=== PATIENT | male | born 1975 | race Caucasian/White ===

== ENCOUNTER → 2016-11-23 | Outpatient (CLI) | payer OTHER ==
--- NOTE | 2016-11-29 00:55 | ECWPNPC ---
PATIENT NAME: KARLA MAGDALENO : 1975 GENDER: MALE VISIT DATE: 11/23/2016 DISCHARGE DATE: 11/23/16 1512 VISIT LOCKED DATE TIME: PHYSICIAN: EDU ROBERTS RESOURCE: EDU ROBERTS REASON FOR APPOINTMENT 1. BILATERAL HEELS HISTORY OF PRESENT ILLNESS FALL RISK SCREENING: SCREENING :NO FALLS IN THE PAST YEAR PAIN SCREENING: PATIENT HAS A COMPLAINT OF ACUTE OR CHRONIC PAIN :YES TODAY'S VISIT: NOTES: REFERRED BY DR Klarissa LAU AND DR SURESH FOR BILATERAL ANKLE PAIN. ONSET 3 YEARS AGO. STATES HE HAD TO JUMP 22 FEET DOWN LADDER LANDING ON FEET AND HEELS. AT THE SCENE , HE WAS UNABLE STAND- HE IMMEDIATELY SAT, ELEVATED FEET, TOOK SHOES OFF AND BOTH FEET AND ANKLES SWELLED SEVERELY AND IMMEDIATELY.WAS SEEN IN [facility] ER AND WAS REFERRED TO [facility]. NO SURGERICAL INTERVENTION WAS DONE TO THE FEET OR ANKLES. - WAS REFERRED TO [facility] BUT THEY DECLINED TO SEE. HAS FALLEN SINCE THE ORIGINAL INJURY AND HAS REBROKEN THE RIGHT HEEL AGAIN X 2. LAST EVENT WAS 2015. HAD COMPLETED PT. REPORTS RIGHT FOOT IS WEAK AND HAS THE MOST PAIN. . WAITING ON ORTHOTICS FOR BOTH FEET. WALKING WITH CANE AT PRESENT. STATES WALKED FROM HIS HOME ON [address] TO THE CLINIC TODAY AND PAIN IS SEVERE DUE TO THIS. IS TRYING TO TAKE CARE OF HOME AND FAMILY. REPORTS HE HAS HAD PRIOR BACK AND NECK PAIN ISSUES - HAD ONE DAY RELIEF AFTER NECK INJECTION COMPLETED BY DR MAHMOOD AT [facility]. HAD PRIOR CERVICAL FX 2013 AFTER A 15 FOOT FALL. RATES PAIN TODAY 9/10. STATES PAIN IS CONSTANT WITH INTERMITTANT SHARP SHOOTING PAIN. WORST PAIN IS RIGHT HEEL AND FOOT. IS CURRENTLY BEING PRESCRIBES PERCOCET 5/325 MAX 3 TABS PER DAY BY ORTHOPEDICS AND THEY HAVE REFERED HIM TO US FOR CONTINUED MEDICATIONS. . CURRENT MEDICATIONS TAKING PERCOCET 5-325 MG TABLET 1 TABLET NEEDED ORALLY THREE TIMES DAILY NEEDED TAKING SPACER/AERO-HOLD CHAMBER BAGS - MISCELLANEOUS DIRECTED TAKING ANORO ELLIPTA UMECLIDINIUM 62.5 MCG AND VILANTEROL 25 MCG INHALATION POWDER 1 INHALATION ORAL ONCE DAILY TAKING VENTOLIN HFA 108 (90 BASE) MCG/ACT AEROSOL SOLUTION 2 PUFFS NEEDED INHALATION EVERY 4 HRS TAKING CLOTRIMAZOLE ANTI-FUNGAL 1 % CREAM 1 APPLICATION TO AFFECTED AREA EXTERNALLY TWICE A DAY TO SHOULDERS TAKING KETOCONAZOLE 2 % SHAMPOO DIRECTED EXTERNALLY DAILY NOT-TAKING GABAPENTIN 100 MG CAPSULE 1 TABLET ORALLY THREE TIMES A DAY NOT-TAKING BUSPAR 15 MG TABLET 1 TABLET ORALLY THREE A DAY MEDICATION LIST REVIEWED AND RECONCILED WITH THE PATIENT PAST MEDICAL HISTORY CHRONIC PAIN SHAVONNE FEET S/P SHAVONNE FX ANXIETY AND DEPRESSION ALLERGIES N.K.D.A. SURGICAL HISTORY DENIES PAST SURGICAL HISTORY FAMILY HISTORY FATHER: , DIAGNOSED WITH CANCER MOTHER: , DIAGNOSED WITH PSYCHIATRIC CONDITIONS 3DAUGHTER(S) - HEALTHY. SOCIAL HISTORY GENERAL: TOBACCO USE ARE YOU A:CURRENT SMOKER HOW MANY CIGARETTES A DAY DO YOU SMOKE?11-20 HOW SOON AFTER YOU WAKE UP DO YOU SMOKE YOUR FIRST CIGARETTE?6-30 MIN HOW OFTEN DO YOU SMOKE CIGARETTES?EVERY DAY PATIENT COUNSELED ON THE DANGERS OF TOBACCO USE AND URGED TO QUIT:11/23/2016 ARE YOU INTERESTED IN QUITTING?NOT READY TO QUIT COUNSELED THE PATIENT ON SMOKING EFFECTS, EDUCATION [id number]/30/2017 ALCOHOL SCREENING POINTS6 INTERPRETATIONPOSITIVE RECREATIONAL DRUG USE DRUG USE?YES HOW OFTEN AND HOW MUCH? MARIJUANA ONCE A MONTH CAFFEINE CAFFEINE USE?YES 3 CUPS OF COFFEE OCCUPATION: DISABLED. DIET: REGULAR. EXERCISE: NO REGULAR EXERCISE. MARITAL STATUS: .. OTHERS AT HOME: GIRLFRIEND, CHILD. PETS: 1 DOG, 1 LIZARD, 1 SNAKE AND SEVERAL FISH. [employer] NO RASTAFARI BELIEFS THAT WOULD IMPACT HEALTH CARE. LANGUAGE BULGARIAN. EDUCATION [employer] GR[employer]--CAN'T READ OR WRITE PLAN OF CARE FOR THE PAIN CENTER REVIEWED WITH PATIENT AND HE VERBALIZED UNDERSTANDING. 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 : YES. DOMESTIC VIOLENCE: NONE. HOSPITALIZATION/MAJOR DIAGNOSTIC PROCEDURE DENIES PAST HOSPITALIZATION REVIEW OF SYSTEMS CONSTITUTIONAL: ANY CHANGE IN YOUR MEDICAL CONDITION? NO . CHILLS NO . FEVER NO . INFECTION: DO YOU HAVE NEW INFECTIONS? NO . DO YOU HAVE HISTORY OF MRSA? NO . MUSCULOSKELETAL: ANY NEW PATTERNS OF PAIN OR NUMBNESS? NO . SYTEMIC LUPUS NO . GASTROENTEROLOGY: ANY NEW CHANGE IN BOWEL CONTROL? NO . BARRETTS ESOPHAGUS NO . CIRRHOSIS NO . HEPATITIS NO . LIVER FAILURE NO . ACID REFLUX NO . UNEXPLAINED WEIGHT LOSS NO . GENITOURINARY: ANY NEW CHANGE IN BLADDER CONTROL? NO . IS THERE A CHANCE YOU COULD BE ? NO . HEMATOLOGY/LYMPH: DO YOU TAKE ANY BLOOD THINNERS? (FOR EXAMPLE- COUMADIN, PLAVIX, AGGRENOX, PLATEL, PRADAXA, OR XARELTO) NO . WHEN WAS YOUR LAST DOSE? DATE: TIME: . LOW PLATELET COUNT NO . SICKLE CELL DISEASE NO . VON WILLIEBRANDS NO . FACTOR V LEIDEN NO . THALLASEMIA NO . ANEMIA NO . EASY BRUISING NO . NEUROLOGY: HEAD INJURY YES . MYAASTHENIA GRAVIS NO . CARDIOLOGY: DO YOU HAVE A PACEMAKER OR DEFIBRILLATOR? NO . ANGINA NO . HEART ATTACK NO . HEART SURGERY NO . CONGESTIVE HEART FAILURE/FLUID OVERLOAD NO . CHEST PAIN NO . HIGH BLOOD PRESSURE NO . IRREGULAR HEART BEAT NO . RESPIRATORY: HAVE YOU BEEN SICK IN THE PAST WEEK? NO . FEVER NO . FLU LIKE SYMPTOMS? NO . CPAP NO . BYPAP NO . ASTHMA YES . EMPHYSEMA NO . CHRONIC LUNG DISEASES YES . SHORTNESS OF BREATH ON EXERTION NO . COUGH YES, NON-PRODUCTIVE . SNORING YES . INTEGUMENTARY: DO YOU HAVE ANY RASHES OR OPEN SORES? NO . ALLERGIC/IMMUNO: ARE YOU ALLERGIC TO SHELLFISH OR IV DYE? NO . ANY NEW ALLERGIES? NO . PSYCHIATRIC: DO YOU HAVE THOUGHTS OF HURTING YOURSELF OR SOMEONE ELSE? NO . ARE YOU ABUSED, NEGLECTED, OR IN AN UNSAFE ENVIRONMENT? NO . ENDOCRINOLOGY: ARE YOU DIABETIC? NO . THYROID DISORDER NO . OTHER: DO YOU NEED ANY PRESCRIPTIONS? NO . IF YES, PLEASE LIST: ____ . ANY NEW PROBLEMS WITH YOUR MEDICATIONS? NO . WHEN DID YOU LAST EAT? ____ . WHEN DID YOU LAST DRINK? ____ . WHAT DID YOU LAST DRINK? ____ . NAME OF PERSON DRIVING YOU HOME? ____ . DO YOU HAVE ANY OTHER QUESTIONS OR CONCERNS NO . PSYCHOLOGY: ARE YOU RECEIVING COUNSELING? YES - WAS NOTING SIGNIFICANT DEPRESSION SO SOUGHT HELP. DENIES SUICIDAL OR HOMICIDAL IDEATION. . REVIEWED BY: PROVIDER: EDU COCHRAN . VITAL SIGNS WT 201.0 LBS, HT 72 IN, BMI 27.26 INDEX, BP 136/93 MM HG, HR 72 /MIN, RR 16 /MIN, TEMP 98.6 F, OXYGEN SAT % 97%, NA INITIALS TL 1327, REVIEWED BY: AD. EXAMINATION GENERAL EXAMINATION: PSYCHALERT , ORIENTED X 3 , IRRITABLE, GOOD EYE CONTACT. HEENT:NORMOCEPHALIC, NO LYMPHADENOPATHY, NO THYROMEGLY. LUNGS:CLEAR TO AUSCULTATION BILATERALLY, SOMEWHAT DECREASED AT BASES. NO WHEEZES, RALES OR RHONCHI. HEART:NORMAL S1S2, NO MURMURS, CLICK OR RUBS, NO CAROTID BRUIT. MUSCULOSKELETAL:MUSCLE STRENGTH TESTING 5/5 BILATERAL UPPER EXTREMITIES. NO WEAKNESS BILATERALLY AT QUADRICEPS. WEAKNESS NOTED BILATERALLY WITH FLEXION, EXTENSION OF ANKLES, RIGHT > LEFT. . EXTREMITIES:RIGHT>LEFT ANKLE/FOOT EDEMA.BOTH ANKLES ERYTHEMATOUS PULSES:. 2+ DORSAL PEDALIS BILATERALLY. POST TIBIALS TRACE BILATERALLY. DECREASED SENSATION OVER LATERAL ASPECT, EXQUISITE TENDERNESS OVER MEDIAL NAVICULAR AND OVER THE LALLEOLUS RIGHT ANKLE/FOOT. . AUDIBLE POP WHEN PUTTING SHOE ON RIGHT FOOT. . LEG/ANKLE DISPLACES LATERALLY WHEN STANDING. AFO SPLINT TO RIGHT LE. GAIT ANTALGIC, RIGHT FOOT DROP NOTED. SKIN:MULTIPLE TATTOES, SKIN PIERCINGS AND 'ENHANCERS" NO RASHES OR OPEN LESIONS NOTED. NEUROLOGIC EXAM:CN'S II-XII GROSSLY INTACT. PATCHY HYPESTHESIA AND DECREASED SENSATION OVER RIGHT FOOT AND ANKLE AND NOTED ABOVE. DIAGNOSTIC TESTS REVIEWEDNO RECENT IMAGING STUDIES OF ANKLES OR LOWER EXTREMITES. ASSESSMENTS UNSPECIFIED FRACTURE OF RIGHT CALCANEUS, SUBSEQUENT ENCOUNTER FOR FRACTURE WITH NONUNION - S92.001K (PRIMARY) UNSPECIFIED FRACTURE OF LEFT CALCANEUS, SUBSEQUENT ENCOUNTER FOR FRACTURE WITH NONUNION - S92.002K PAIN OF LEFT FOOT - M79.672 PAIN IN RIGHT FOOT - M79.671 TREATMENT UNSPECIFIED FRACTURE OF RIGHT CALCANEUS, SUBSEQUENT ENCOUNTER FOR FRACTURE WITH NONUNION START BACLOFEN TABLET, 10 MG, 1 TABLET WITH FOOD OR MILK, ORALLY, BEFORE BEDTIME, 30 DAY(S), 30, REFILLS 1 NOTES: TALK TO MR THOMAS ABOUT NIGHT TIME ANKLE BRACE. TALK TO DR LUX ABOUT REFERRAL FOR NECK AND BACK PAIN. CANNOT ATTEND 2 PAIN CLINICS. Ariella MEYERS WILL DISCUSS RETAIL FIELD REPRESENTATIVE PAIN MEDS WITH DR LUX.11/27/16 AT 1020 ([phone])- CALL PLACED TO DR LUX - AWAITING RETURN CALL TO DISCUSS MEDS AND ONGOING TREATMENT. CLINICAL NOTES: ISTOP REGISTRY REVIEWED AND DEMNOSTRATES COMPLLIANCE. PATIENT REPORTS HE DOES USE MARIJUANA INTERMITTANTLY FOR SLEEP, ANXIETY AND PAIN. STATES HE IS ONLY INTERESTED I GETTING BETTER AND GETTING BACK TO WORK. STATES PAIN IS ELEVATED TODAY HE WALKED TO THE CLINIC (HAD INSUFICIENT NOTICE OF APPOINTMENT TO [facility]RANGE TRANSPORTATION AND WAS VERY EAGER TO START TREATMENT WITH US.) FOR TODAY WILL PROVIDE CAB VOUCHER TO GET BACK HOME. IF HIS INSURANCE WOULD ALLOW, HE WOULD BE A GOOD CANDIDATE FOR A DORSAL COLUMN STINULATOR. HE REPORTS HE HAD SOME BENEFIT FROM CERVICAL EPIDURAL BUT WISHES TO MOVE HIS CARE TO OUR CLINIC. [facility] REASON:BILATERAL CALCANUS FX, UNSTABLE RIGHT ANKLE PROCEDURE CODES FA211 ESTABILISHED PATIENT [facility] CHARGE DISPOSITION & COMMUNICATION FOLLOW UP ABOUT ELECTRONICALLY SIGNED BY LUIGI LATIF ON 11/28/2016 AT 08:34 AM EDT DISCLAIMER : THIS IS A VISIT SUMMARY EXTRACTED FROM THE [facility] CHART. IT IS NOT A COPY OF THE [facility] PROGRESS NOTE. JOAQUÍN
== END ==
LOC: M PAIN 13:20
PROVIDERS: ATTEND Nurse Practitioner Family
DX: G89.29 Other chronic pain (principal); S92.001K Unspecified fracture of right calcaneus, subsequent encounter for fracture with nonunion; S92.002K Unspecified fracture of left calcaneus, subsequent encounter for fracture with nonunion; M79.672 Pain in left foot; M79.671 Pain in right foot; F32.9 Major depressive disorder, single episode, unspecified; F41.9 Anxiety disorder, unspecified; F17.200 Nicotine dependence, unspecified, uncomplicated; Z79.899 Other long term (current) drug therapy; W11.XXXS Fall on and from ladder, sequela; Y92.9 Unspecified place or not applicable; Y93.9 Activity, unspecified; Y99.8 Other external cause status

== ENCOUNTER 2017-02-27 15:50 | Emergency (ER) | payer OTHER ==
[~2017-02-27] VITALS: Ht 185.4 cm; Wt 87.8 kg
[2017-02-27] MEDS ORDERED: VICO5TAB16 PO (16:06)
[2017-02-27] MEDS ORDERED: LIDOCAINE 1% MDV 20ML VIAL IM ONE (17:00)
--- NOTE | 2017-02-27 17:01 | REP ---
Clinical: trauma . Comparison: 11/28/2012 . Findings: The ventricles, sulci, and cisterns are normal in position and appearance. Betancourt-white differentiation is maintained. No acute intracranial hemorrhage, mass/mass effect, pathology or trauma/injury. No evidence for acute infarction. No extra-axial fluid collection. Calvarium is intact. Paranasal sinuses and mastoid air cells are clear. Impression: Normal noncontrast head CT. No evidence for acute intracranial pathology or trauma/injury. Signed by Fredi Cameron MD 02/27/2017 04:53 P
[2017-02-27] MEDS ORDERED: OXYCODONE/APAP 5MG/325MG(BULK FOR ED) 1 TABLET PO ONE (18:00)
[2017-02-27 18:16] VITALS: BP 121/68
== END 2017-02-27 18:27 | disposition home or self-care (01) ==
LOC: M ED 15:50
DX: S01.01XA Laceration without foreign body of scalp, initial encounter (principal); W19.XXXA Unspecified fall, initial encounter; Y92.89 Other specified places as the place of occurrence of the external cause; Y93.9 Activity, unspecified; Y99.9 Unspecified external cause status; F17.200 Nicotine dependence, unspecified, uncomplicated

== ENCOUNTER 2018-01-14 13:18 | Emergency (ER) | payer MEDICAID, OTHER | END 2018-01-14 17:41 | disposition left against medical advice (07) | LOC: M ED 13:18 | DX: K04.7 Periapical abscess without sinus (principal); F32.9 Major depressive disorder, single episode, unspecified; Z72.0 Tobacco use | CPT/HCPCS: 99283 ==

== ENCOUNTER 2018-03-18 12:12 | Emergency (ER) | payer MEDICAID | END 2018-03-18 16:24 | disposition left against medical advice (07) | LOC: M ED 12:12 | DX: Z53.21 Procedure and treatment not carried out due to patient leaving prior to being seen by health care provider (principal) ==

== ENCOUNTER 2019-04-23 12:13 | Outpatient (RCR) | payer OTHER ==
[~2019-04-23 12:13] MED LIST: CLEO300C2 PO; IBUP-1022 PO; KETO10TAB PO; VICO5TAB17 PO
== END 2019-04-26 ==
LOC: M PT 12:13
PROVIDERS: ATTEND Orthopaedic Surgery Orthopaedic Trauma
DX: S82.142A Displaced bicondylar fracture of left tibia, initial encounter for closed fracture (principal)

== ENCOUNTER 2019-05-21 12:29 | Outpatient (RCR) | payer OTHER | END 2019-05-26 | LOC: M PT 12:29 | PROVIDERS: ATTEND Orthopaedic Surgery Orthopaedic Trauma | DX: Z47.89 Encounter for other orthopedic aftercare (principal); S82.142A Displaced bicondylar fracture of left tibia, initial encounter for closed fracture; S82.142B Displaced bicondylar fracture of left tibia, initial encounter for open fracture type I or II ==

== ENCOUNTER 2019-06-12 22:33 | Emergency (ER) | payer OTHER ==
[2019-06-12 22:50] VITALS: BP 130/99
[2019-06-12] MEDS ORDERED: GABA-845 (22:54)
[2019-06-12] MEDS ORDERED: OXYC1TAB15 (22:54)
[2019-06-13 00:14] LABS: HEMATOCRIT 44.2 % (42.0-52.0); HEMOGLOBIN 14.2 g/dl (13.5-17.5); MEAN CORPUSCULAR HEMOGLOBIN 28.4 pg (27.0-33.0); MEAN CORPUSCULAR HGB CONC 32.1 g/dl (32.0-36.5); MEAN CORPUSCULAR VOLUME 88.4 fl (80.0-96.0); PLATELET COUNT, AUTOMATED 278 10^3/uL (150-450); WHITE BLOOD COUNT 10.1 10^3/uL (4.0-10.0)
[2019-06-13] MEDS ORDERED: PERCOCET 5MG/325MG TAB PO ONE (00:15)
[2019-06-13] MEDS ORDERED: GABAPENTIN 400 MG CAP PO ONE (00:15)
[2019-06-13 00:23] LABS: AMPHETAMINES LEVEL URINE NEGATIVE (NEGATIVE); BARBITURATES URINE NEGATIVE (NEGATIVE); BENZODIAZEPINES URINE NEGATIVE (NEGATIVE); CANNABINOIDS URINE POSITIVE (NEGATIVE); COCAINE METABOLITE URINE NEGATIVE (NEGATIVE); METHADONE URINE NEGATIVE (NEGATIVE); OPIATES URINE POSITIVE (NEGATIVE); PHENCYCLIDINE URINE NEGATIVE (NEGATIVE)
[2019-06-13 00:25] LABS: ACETAMINOPHEN LEVEL < 2.0 UG/ML (10.0-30.0); ALBUMIN 3.2 GM/DL (3.2-5.2); ALT/SGPT 13 U/L (12-78); BILIRUBIN,DIRECT < 0.1 MG/DL (0.0-0.2); BILIRUBIN,TOTAL 0.4 MG/DL (0.2-1.0); BLOOD UREA NITROGEN 8 MG/DL (7-18); CALCIUM LEVEL 8.7 MG/DL (8.5-10.1); CARBON DIOXIDE LEVEL 31 MEQ/L (21-32); CHLORIDE LEVEL 108 MEQ/L (98-107); CREATININE FOR GFR 0.81 MG/DL (0.70-1.30); ETHYL ALCOHOL (ETHANOL) < 0.003 % (0.000-0.010); GLOMERULAR FILTRATION RATE > 60.0 (>60); GLUCOSE, FASTING 94 MG/DL (70-100); POTASSIUM SERUM 4.3 MEQ/L (3.5-5.1); SODIUM LEVEL 142 MEQ/L (136-145); THYROID STIMULATING HORMONE 0.614 uIU/ML (0.358-3.740); TOTAL PROTEIN 6.8 GM/DL (6.4-8.2)
[2019-06-13] MEDS ORDERED: SPIR-10 PO (01:21)
[2019-06-13] MEDS ORDERED: GABA-845 PO (01:21)
[2019-06-13] MEDS ORDERED: PERC7.5T11 PO (01:21)
== END 2019-06-13 02:53 | disposition home or self-care (01) ==
LOC: M ED 22:33
DX: F43.0 Acute stress reaction (principal); F17.200 Nicotine dependence, unspecified, uncomplicated; F12.10 Cannabis abuse, uncomplicated; Z79.899 Other long term (current) drug therapy
CPT/HCPCS: 80048; 80076; 80307; 84443; 85027; 99284; G0480

== ENCOUNTER → 2021-02-08 | Outpatient (REF) ==
[~2021-02-08] MED LIST changes: +GABA-283; +GABA-283 PO; +OXYC1TAB15; +PERC7.5T11 PO; +SPIR-10 PO
--- NOTE | 2021-02-09 03:16 | REPPI ---
INDICATION: DISABILITY DIAGNOSIS DETERMINATION COMPARISON: None. TECHNIQUE: AP, lateral, bilateral oblique and sunrise views. FINDINGS: Evidence for prior orthopedic fixation involving the proximal tibia. Posttraumatic arthritic changes at the knee joint are appreciated including periarticular sclerosis/irregularity and joint space narrowing. No acute fracture or dislocation. Small effusion cannot be excluded.. IMPRESSION: Moderate posttraumatic arthritic changes <Electronically signed by Fredi Cameron > 02/09/21 [id number]
== END ==
LOC: M PLAIMG 10:09
PROVIDERS: ATTEND Internal Medicine
DX: Z02.71 Encounter for disability determination (principal)

== ENCOUNTER → 2021-10-05 | Outpatient (REF) ==
[~2021-10-05] MED LIST changes: -OXYC1TAB15; +OXYC7.5T3
== END ==
LOC: M PLAIMG 13:38
PROVIDERS: ATTEND Internal Medicine
DX: M16.11 Unilateral primary osteoarthritis, right hip (principal); M48.07 Spinal stenosis, lumbosacral region; M25.78 Osteophyte, vertebrae

== ENCOUNTER 2024-11-14 20:09 | Emergency (ER) | payer OTHER, SELFPAY ==
[~2024-11-14] VITALS: Ht 185.4 cm; Wt 79.6 kg
[~2024-11-14 20:09] MED LIST changes: -GABA-283; -GABA-283 PO; +GABA-284; +GABA-284 PO
[2024-11-14 22:28] VITALS: BP 135/93; TEMP 100.5; O2SAT 98
== END 2024-11-15 00:40 | disposition left against medical advice (07) ==
LOC: M ED 20:09
DX: Z53.21 Procedure and treatment not carried out due to patient leaving prior to being seen by health care provider (principal)